=== PATIENT | female | born 1990 | race Caucasian/White ===

== ENCOUNTER 2018-05-02 11:26 | Observation (INO) | payer BC ==
[2018-05-02 14:21] LABS: Urine Blood NEGATIVE (NEG); Urine Glucose 2+ (NEG); Urine Protein NEGATIVE (NEG); Urine Specific Gravity 1.025 (1.005-1.030); Urine pH 5.5 (5.0-7.0)
[2018-05-02] MEDS ORDERED: MORPHINE 4 MG/ML SYR ONE (14:37)
[2018-05-02] MEDS ORDERED: NA CHLORIDE 0.9% 1,000 ML ONE (14:38)
[2018-05-02] MEDS ORDERED: PIPER/TAZO/NS 3.375gm 3.375 GM/100 ML BAG ONE (14:38)
[2018-05-02] MEDS ORDERED: ONDANSETRON 4 MG/2 ML VIAL ONE ×2 (14:38→16:06)
--- NOTE | 2018-05-02 15:11 | RAD REPORT ---
EXAM DESCRIPTION: CT - Abdomen Pelvis W Contrast - 05/02/2018 3:02 pm CLINICAL HISTORY: Abdominal pain, pelvic pain, dyspareunia COMPARISON: CT study April 22 TECHNIQUE: Biphasic, helical CT imaging of the abdomen and pelvis was performed following 100 ml non -ionic IV contrast. No oral contrast administered. All CT scans are performed using dose optimization technique as appropriate and may include automated exposure control or mA/KV adjustment according to patient size. FINDINGS: No suspicious findings in the lung bases. The liver, spleen, and pancreas show no suspicious findings. Gallbladder and biliary tree are also wi thout suspicious finding. Symmetric renal function is seen with no hydronephrosis or suspicious renal mass. No pyelonephritis o r acute renal parenchymal process. No urinary bladder abnormality. Uterus and right ovary show no suspicious findings. There is no fallopian tube dilatation. Left ovary contains a 3.6 centimeter cyst. This is similar to very fractionally enlarged from the April 22 study. No evidence for cyst rupture or hemorrhage. No dilated bowel loops or bowel wall thickening. Appendectomy clips are present. There is a moderatel y large amount of stool filling but not dilating colon. No free air, free fluid or inflammatory stran ding. No hernia, mass or bulky lymphadenopathy. No adrenal abnormality. No suspicious bony findings. IMPRESSION: No obstruction, free air or emergent findings seen. Patient has a 3.6 centimeter left ovarian cyst that may have fractionally enlarged since April 22. No evidence for cyst rupture or hemorrhage. Moderately large stool volume filling but not dilating the colon.
[2018-05-02 15:17] LABS: Absolute Lymphocytes (CBC) 2.3 K/uL (0.7-4.9); Absolute Monocytes 0.4 K/uL (0.1-1.3); Absolute Neutrophil 6.2 K/uL (1.8-8.0); Basophils % 0.7 % (0-1.3); Eosinophils % 0.6 % (0-4.4); Hematocrit 42.5 % (36.0-45.0); Lymphocytes % 25.1 % (15.3-44.8); MCH 30.1 pg (27.0-35.0); MCV 89.3 fL (80-100); MPV 9.3 fL (7.6-11.3); Monocytes % 4.9 % (3.3-12.3); RBC Red Blood Cell Count 4.76 M/uL (3.86-4.86)
[2018-05-02 15:30] LABS: BUN Blood Urea Nitrogen 15 mg/dL (6-20); Bicarbonate 21 mEq/L (21-31); Glucose Level 317 mg/dL (65-120); Potassium 3.6 mEq/L (3.6-5.0); Sodium Level 133 mEq/L (135-145)
[2018-05-02] MEDS ORDERED: MEPERIDINE HCL 25 MG/0.5 ML ONE ×2 (16:06→18:07)
--- NOTE | 2018-05-02 16:55 | ER ---
Nurse's Notes [facility] Name: Huong Benavidez Age: 27 yrs Sex: Female : 1990 Arrival Date: 05/02/2018 Time: 11:37 Bed 16 Private MD: Chu Ryan T Diagnosis: Abdominal and pelvic pain;Intractable pain Presentation: 05/02 11:57 Presenting complaint: Patient states: Lower abdominal and pelvic pain x 2 weeks, worse hb after intercourse 3 days ago. Recently seen by OBGYN for same s/s, told she has ovarian cysts. Denies bleeding/fever. On Flagyl and Cipro Day 12 for pelvic infection. Transition of care: patient was not received from another setting of care. Onset of symptoms is unknown. Risk Assessment: Do you want to hurt yourself or someone else? Patient reports no desire to harm self or others. Initial Sepsis Screen: Does the patient meet any 2 criteria? No. Patient's initial sepsis screen is negative. Does the patient have a suspected source of infection? No. Patient's initial sepsis screen is negative. Care prior to arrival: Medication(s) given: Excedrin at 0830 today. 11:57 Method Of Arrival: Ambulatory hb 11:57 Acuity: STACI 3 hb Historical: - Allergies: 12:00 No Known Drug Allergies; hb - PMHx: 12:00 Ovarian Cysts; hb - PSHx: 12:00 Appendectomy; Tonsillectomy; ; hb - Immunization history:: Adult Immunizations up to date. - Social history:: Smoking status: Patient/guardian denies using tobacco. - Ebola Screening: : No symptoms or risks identified at this time. Screenin:15 Abuse screen: Denies threats or abuse. Denies injuries from another. Nutritional ph screening: No deficits noted. Tuberculosis screening: No symptoms or risk factors identified. Fall Risk None identified. Assessment: 14:15 General: Appears in no apparent distress. comfortable, well groomed, Behavior is calm, ph cooperative, appropriate for age, Denies fever, feeling ill. Pain: Complains of pain in suprapubic area, right lower quadrant and left lower quadrant. Neuro: Level of Consciousness is awake, alert, obeys commands, Oriented to person, place, time, situation. Cardiovascular: Capillary refill < 3 seconds Patient's skin is warm and dry. Respiratory: Airway is patent Respiratory effort is even, unlabored, Respiratory pattern is regular, symmetrical. GI: Abdomen is round non-distended, Bowel sounds present X 4 quads. Abd is soft X 4 quads Abdomen is tender to palpation in right lower quadrant and left lower quadrant Reports bloating, nausea, Patient currently denies diarrhea, vomiting. : Reports pain in suprapubic area Denies discharge, vaginal bleeding. Derm: Skin is intact, is healthy with good turgor, Skin is pink, warm \T\ dry. Musculoskeletal: Circulation, motion, and sensation intact. Range of motion: intact in all extremities. 15:29 Reassessment: Patient appears in no apparent distress at this time. Patient and/or ph family updated on plan of care and expected duration. Pain level reassessed. Patient is alert, oriented x 3, equal unlabored respirations, skin warm/dry/pink. Pt resting quietly, awaiting CT and lab results. 16:45 Reassessment: Patient appears in no apparent distress at this time. Patient and/or ph family updated on plan of care and expected duration. Pain level reassessed. Patient is alert, oriented x 3, equal unlabored respirations, skin warm/dry/pink. Pt resting quietly, reports that pain has decreased to 4/10. 17:19 Reassessment: Patient appears in no apparent distress at this time. Patient and/or ph family updated on plan of care and expected duration. Pain level reassessed. Patient is alert, oriented x 3, equal unlabored respirations, skin warm/dry/pink. Pt reports pain 5/10, denies nausea, awaiting room assignment. Vital Signs: 11:56 BP 124 / 95; Pulse 91; Resp 16; Temp 98; Pulse Ox 100% on R/A; Pain 6/10; hb 14:30 BP 124 / 90; Pulse 89; Resp 16; Pulse Ox 99% on R/A; ph 15:53 BP 126 / 87; Pulse 89; Resp 16; Pulse Ox 99% on R/A; ph 18:09 BP 116 / 78; Pulse 89; Resp 18; Temp 97.8; Pulse Ox 97% on R/A; ph ED Course: 11:37 Patient arrived in ED. kk3 11:38 Chu Ryan MD is Private Physician. kk3 11:59 Triage completed. hb 12:00 Arm band placed on right wrist. hb 14:09 Jessica Cano RN is Primary Nurse. ph 14:14 Nestor Salinas MD is Attending Physician. kdr 14:18 Urine collected: clean catch specimen, clear, coty colored. jb1 14:39 Inserted saline lock: 20 gauge in left Blood collected. ph 15:02 CT Abd/Pelvis - W/Contrast In Process Unspecified. EDMS 15:16 Patient has correct armband on for positive identification. Placed in gown. Bed in low ph position. Call light in reach. Side rails up X 1. Pulse ox on. NIBP on. Warm blanket given. 16:54 Conchita Sim MD is Hospitalizing Provider. kdr 18:19 No provider procedures requiring assistance completed. Patient admitted, IV remains in ph place. Administered Medications: 14:10 Drug: Zosyn 3.375 grams Route: IVPB; Infused Over: 60 mins; Site: left antecubital; ph 15:00 Follow up: Response: No adverse reaction; IV Status: Completed infusion ph 14:45 Drug: NS 0.9% 1000 ml Route: IV; Rate: 1 bolus; Site: left antecubital; ph 16:00 Follow up: Response: No adverse reaction; IV Status: Completed infusion ph 14:45 Drug: morphine 4 mg Route: IVP; Site: left antecubital; ph 15:45 Follow up: Response: No adverse reaction; Pain is unchanged, physician notified ph 14:45 Drug: Zofran 4 mg Route: IVP; Site: left antecubital; ph 15:45 Follow up: Response: No adverse reaction ph 16:16 Drug: Demerol 25 mg Route: IVP; Site: left antecubital; ph 17:00 Follow up: Response: No adverse reaction; Pain is decreased ph 16:17 Drug: Zofran 4 mg Route: IVP; Site: left antecubital; ph 17:00 Follow up: Response: No adverse reaction ph 18:09 Drug: Demerol 25 mg Route: IVP; Site: left antecubital; ph 18:15 Follow up: Response: No adverse reaction; Pain is decreased ph Outcome: 16:55 Decision to Hospitalize by Provider. kdr 18:20 Admitted to Med/surg accompanied by tech, via wheelchair, room 209, Other JULIOCESAR Dickens ph 18:20 Condition: stable 18:20 Instructed on the need for admit. 18:21 Patient left the ED. ph Signatures: Dispatcher [employer] CAMI KitchenNate ruiz [email or web address] Nestor Salinas MD MD [facility] Jessica Cano RN RN Taryn Cruz RN RN [facility], [place] kk3 Corrections: (The following items were deleted from the chart) 12:01 11:57 Presenting complaint: Patient states: Lower abdominal and pelvic pain x 2 weeks, hb worse after intercourse 3 days ago. Recently seen by OBGYN for same s/s, told she has ovarian cysts. Denies bleeding/fever hb
[2018-05-02] MEDS ORDERED: ONDANSETRON 4 MG/2 ML VIAL IV PRN (16:56)
[2018-05-02] MEDS ORDERED: ACETAMINOPHEN 500 MG TAB PO PRN (16:56)
--- NOTE | 2018-05-02 16:56 | EDPHYS ---
Physician Documentation [facility] Name: Huong Benavidez Age: 27 yrs Sex: Female : 1990 Arrival Date: 05/02/2018 Time: 11:37 Bed 16 Private MD: Chu Ryan T ED Physician Nestor Salinas HPI: 05/02 21:47 This 27 yrs old Female presents to ER via Ambulatory with complaints of kdr Abdominal Pain, Pelvic Pain. 21:47 The patient presents with abdominal pain in the lower abdomen, in the left lower kdr quadrant. Onset: The symptoms/episode began/occurred The patient has been having abdominal pain for weeks and now has worsening pain to the lower abdomen and LLQ.. The symptoms radiate to the left flank. Associated signs and symptoms: Pertinent positives: nausea, Pertinent negatives: chest pain, constipation, diarrhea, dysuria, fever, headache, hematuria, palpitations, shortness of breath, vaginal discharge, vomiting, vomiting blood. The symptoms are described as achy, crampy, dull, waxing/waning. Modifying factors: The symptoms are alleviated by nothing, the symptoms are aggravated by breathing deeply, movement, pressure, touching the area, walking. Severity of pain: At its worst the pain was moderate in the emergency department the pain is unchanged. The patient has experienced similar episodes in the past, multiple times, The patient has been having abdominal pain off and on for some weeks. She has recently been evaluated by Dr. Handley and Dr. Recinos. No clear etiology has been found to date. The patient has been recently seen by a physician:. Historical: - Allergies: 12:00 No Known Drug Allergies; hb - PMHx: 12:00 Ovarian Cysts; hb - PSHx: 12:00 Appendectomy; Tonsillectomy; ; hb - Immunization history:: Adult Immunizations up to date. - Social history:: Smoking status: Patient/guardian denies using tobacco. - Ebola Screening: : No symptoms or risks identified at this time. ROS: 21:47 Constitutional: Negative for fever, chills, and weight loss, Eyes: Negative for injury, kdr pain, redness, and discharge, ENT: Negative for injury, pain, and discharge, Neck: Negative for injury, pain, and swelling, Cardiovascular: Negative for chest pain, palpitations, and edema, Respiratory: Negative for shortness of breath, cough, wheezing, and pleuritic chest pain, Back: Negative for injury and pain, : Negative for injury, bleeding, discharge, and swelling, MS/Extremity: Negative for injury and deformity, Skin: Negative for injury, rash, and discoloration, Neuro: Negative for headache, weakness, numbness, tingling, and seizure activity. Psych: Negative for depression, anxiety, suicide ideation, homicidal ideation, and hallucinations, Allergy/Immunology: Negative for hives, rash, and allergies, Endocrine: Negative for neck swelling, polydipsia, polyuria, polyphagia, and marked weight changes, Hematologic/Lymphatic: Negative for swollen nodes, abnormal bleeding, and unusual bruising. 21:47 Abdomen/GI: Positive for abdominal pain, nausea, Negative for diarrhea, constipation, abdominal cramps, abdominal distension, anorexia, dysphagia, black/tarry stool, rectal pain, rectal bleeding. Exam: 21:47 Constitutional: This is a well developed, well nourished patient who is awake, alert, kdr and in no acute distress. Head/Face: Normocephalic, atraumatic. Eyes: Pupils equal round and reactive to light, extra-ocular motions intact. Lids and lashes normal. Conjunctiva and sclera are non-icteric and not injected. Cornea within normal limits. Periorbital areas with no swelling, redness, or edema. Neck: Trachea midline, no thyromegaly or masses palpated, and no cervical lymphadenopathy. Supple, full range of motion without nuchal rigidity, or vertebral point tenderness. No Meningismus. Chest/axilla: Normal chest wall appearance and motion. Nontender with no deformity. No lesions are appreciated. Cardiovascular: Regular rate and rhythm with a normal S1 and S2. No gallops, murmurs, or rubs. Normal PMI, no JVD. No pulse deficits. Respiratory: Lungs have equal breath sounds bilaterally, clear to auscultation and percussion. No rales, rhonchi or wheezes noted. No increased work of breathing, no retractions or nasal flaring. Back: No spinal tenderness. No costovertebral tenderness. Full range of motion. Skin: Warm, dry with normal turgor. Normal color with no rashes, no lesions, and no evidence of cellulitis. MS/ Extremity: Pulses equal, no cyanosis. Neurovascular intact. Full, normal range of motion. Neuro: Awake and alert, GCS 15, oriented to person, place, time, and situation. Cranial nerves II-XII grossly intact. Motor strength 5/5 in all extremities. Sensory grossly intact. Cerebellar exam normal. Normal gait. Psych: Awake, alert, with orientation to person, place and time. Behavior, mood, and affect are within normal limits. 21:47 Abdomen/GI: Inspection: abdomen appears normal, Bowel sounds: active, all quadrants, diminished, Palpation: soft, mild abdominal tenderness, in the suprapubic area, posterior aspect of left lateral abdomen, anterior aspect of left lateral abdomen and left lower quadrant, mass, is not appreciated, rebound tenderness, is not appreciated. Vital Signs: 11:56 BP 124 / 95; Pulse 91; Resp 16; Temp 98; Pulse Ox 100% on R/A; Pain 6/10; hb 14:30 BP 124 / 90; Pulse 89; Resp 16; Pulse Ox 99% on R/A; ph 15:53 BP 126 / 87; Pulse 89; Resp 16; Pulse Ox 99% on R/A; ph 18:09 BP 116 / 78; Pulse 89; Resp 18; Temp 97.8; Pulse Ox 97% on R/A; ph MDM: 16:55 Patient medically screened. kdr 21:47 Data reviewed: vital signs, nurses notes, lab test result(s), radiologic studies. kdr Counseling: I had a detailed discussion with the patient and/or guardian regarding: the historical points, exam findings, and any diagnostic results supporting the discharge/admit diagnosis, lab results, radiology results, the need for further work-up and treatment in the hospital. Physician consultation: Conchita Sim MD regarding admission, and will see patient in inpatient room, shortly. Physician consultation: Peter Recinos MD regarding patient's condition. Admission orders: after a detailed discussion of the patient's condition and case, the admit orders are written by me. 05/02 14:19 Order name: Urine Dipstick--Ancillary (enter results); Complete Time: 14:23 ag 05/02 14:19 Order name: Urine --Ancillary (enter results); Complete Time: 14:23 ag 05/02 14:25 Order name: CBC with Diff; Complete Time: 15:38 kdr 05/02 14:25 Order name: Chem 7; Complete Time: 15:38 kdr 05/02 14:25 Order name: CT Abd/Pelvis - W/Contrast; Complete Time: 15:38 kdr Administered Medications: 14:10 Drug: Zosyn 3.375 grams Route: IVPB; Infused Over: 60 mins; Site: left antecubital; ph 15:00 Follow up: Response: No adverse reaction; IV Status: Completed infusion ph 14:45 Drug: NS 0.9% 1000 ml Route: IV; Rate: 1 bolus; Site: left antecubital; ph 16:00 Follow up: Response: No adverse reaction; IV Status: Completed infusion ph 14:45 Drug: morphine 4 mg Route: IVP; Site: left antecubital; ph 15:45 Follow up: Response: No adverse reaction; Pain is unchanged, physician notified ph 14:45 Drug: Zofran 4 mg Route: IVP; Site: left antecubital; ph 15:45 Follow up: Response: No adverse reaction ph 16:16 Drug: Demerol 25 mg Route: IVP; Site: left antecubital; ph 17:00 Follow up: Response: No adverse reaction; Pain is decreased ph 16:17 Drug: Zofran 4 mg Route: IVP; Site: left antecubital; ph 17:00 Follow up: Response: No adverse reaction ph 18:09 Drug: Demerol 25 mg Route: IVP; Site: left antecubital; ph 18:15 Follow up: Response: No adverse reaction; Pain is decreased ph Disposition: 05/02/18 16:55 Hospitalization ordered by Conchita Sim for Observation. Preliminary diagnosis are Abdominal and pelvic pain, Intractable pain. - Bed requested for Telemetry/MedSurg (observation). - Status is Observation. ph - Condition is Fair. - Problem is an ongoing problem. - Symptoms have improved. UTI on Admission? No Signatures: Dispatcher [employer] Claire Armstrong RN RN dw Rittger, Kevin, MD MD kdr Hall, Patricia, RN RN Taryn Cruz RN RN Corrections: (The following items were deleted from the chart) 17:52 16:55 Hospitalization Ordered by Conchita Sim MD for Observation. Preliminary dw diagnosis is Abdominal and pelvic pain; Intractable pain. Bed requested for Telemetry/MedSurg (observation). Status is Observation. Condition is Fair. Problem is an ongoing problem. Symptoms have improved. UTI on Admission? No. kdr 18:21 17:52 05/02/2018 16:55 Hospitalization Ordered by Conchita Sim MD for Observation. ph Preliminary diagnosis is Abdominal and pelvic pain; Intractable pain. Bed requested for Telemetry/MedSurg (observation). Status is Observation. Condition is Fair. Problem is an ongoing problem. Symptoms have improved. UTI on Admission? No. dw
[2018-05-02] MEDS: D5 0.45 NS 1,000 ML IV SCH (18:42)
[2018-05-02] MEDS: METRONIDAZOLE 500mg IVPB 500 MG/100 ML BAG IV SCH ×2 (18:42→23:51)
[2018-05-02] MEDS: MORPHINE 4 MG/ML SYR IV PRN (20:45)
[2018-05-02] MEDS: AMPICILLIN/SULBACT 3 GM in NA CHLORIDE 0.9% 100 ML IVPB SCH ×2 (20:46→23:51)
[2018-05-03] MEDS: D5 0.45 NS 1,000 ML IV SCH ×3 (02:49→18:32)
[2018-05-03] MEDS: MORPHINE 4 MG/ML SYR IV PRN ×2 (04:14→10:14)
[2018-05-03] MEDS: AMPICILLIN/SULBACT 3 GM in NA CHLORIDE 0.9% 100 ML IVPB SCH (05:32)
[2018-05-03 05:50] LABS: Albumin 3.1 g/dL (3.2-5.5); Bilirubin Direct 0.1 mg/dL (0-0.2); Bilirubin Total 0.5 mg/dL (0.3-1.2); Potassium 4.1 mEq/L (3.6-5.0); Protein, Total 5.8 g/dL (6.0-8.3)
[2018-05-03 05:51] LABS: Absolute Lymphocytes (CBC) 1.9 K/uL (0.7-4.9); Absolute Monocytes 0.5 K/uL (0.1-1.3); Absolute Neutrophil 3.7 K/uL (1.8-8.0); Basophils % 0.7 % (0-1.3); Eosinophils % 1.4 % (0-4.4); Hematocrit 37.7 % (36.0-45.0); Lymphocytes % 31.1 % (15.3-44.8); MCH 30.8 pg (27.0-35.0); MCV 89.3 fL (80-100); MPV 8.8 fL (7.6-11.3); Monocytes % 7.5 % (3.3-12.3); RBC Red Blood Cell Count 4.22 M/uL (3.86-4.86)
[2018-05-03] MEDS: METRONIDAZOLE 500mg IVPB 500 MG/100 ML BAG IV SCH ×2 (06:22→07:32)
[2018-05-03] MEDS ORDERED: PROPOFOL 200 MG/20 ML VIAL IV ONE (06:58)
[2018-05-03] MEDS ORDERED: LIDOCAINE 2% MPF 5 ML VIAL ONE (06:59)
[2018-05-03] MEDS ORDERED: ROCURONIUM 50 MG/5 ML VIAL IV ONE (06:59)
[2018-05-03] MEDS ORDERED: NA CHLORIDE 0.9% 1,000 ML ONE ×2 (06:59→08:46)
[2018-05-03] MEDS ORDERED: MIDAZOLAM HCL 2 MG/2 ML INJ ONE (07:00)
[2018-05-03] MEDS ORDERED: FENTANYL CITR 250 MCG/5 ML ONE (07:00)
[2018-05-03] MEDS ORDERED: ONDANSETRON HCL 40 MG/20 ML VIAL ONE (07:01)
[2018-05-03] MEDS ORDERED: GLYCOPYRROLATE 0.2 MG/ML SYR ONE (07:57)
[2018-05-03] MEDS ORDERED: NEOSTIGMINE 1 MG/ML -5 ML SYRINGE ONE (08:37)
[2018-05-03] MEDS: MEPERIDINE HCL 25 MG/0.5 ML ONE ×2 (08:50→08:57)
[2018-05-03] MEDS ORDERED: MORPHINE 4 MG/ML SYR ONE (09:14)
[2018-05-03] MEDS ORDERED: HYDROCODONE/APAP 5/325 MG TAB PO PRN (10:19)
[2018-05-03] MEDS ORDERED: IBUPROFEN 200 MG TAB PO PRN (10:19)
[2018-05-03] MEDS ORDERED: PROMETHAZINE 25 MG TABLET PO PRN (10:20)
[2018-05-03] MEDS: HYDROCODONE/APAP 5/325 MG TAB PO PRN ×2 (11:24→18:33)
[2018-05-03] MEDS: PROMETHAZINE 25 MG/ML VIAL IV PRN ×2 (11:33→20:04)
--- NOTE | 2018-05-03 13:21 | OP ---
Date of Procedure: 05/03/2018 Surgeon: Conchita Sim MD Preoperative Diagnosis: Pelvic pain. Postoperative Diagnoses: 1.Pelvic pain and an umbilical hernia. 2.Left ovarian cyst. Procedures Performed: Diagnostic laparoscopy, left ovarian cyst drainage, right lateral wall periton eal biopsy by myself. Please look at Dr. Recinos's note for diagnostic laparoscopy and umbilical hernia repair. Specimens: Right lateral wall biopsy. Complications: None. Drains: None. Condition: The patient is stable. Estimated Blood Loss: Minimal. Indications: The patient is a 27-year-old with history of pelvic pain. Initially, she was seen by Faizan Ryan, treated for PID x2. She has had an IUD for 2 years. She had a delivery 2 years ag o after which the IUD was placed for control. She did well until she went to [facility] [place], when her pain got worse. She was treated with 2 rounds of antibiotics, pretty strong dose and 2 -week duration each time. She improved in between each and then recurred with pain, so she was refer red to me. She came back 5 weeks after her initial exam and she still had her complaints of pain. A transvagina l ultrasound showed a left ovarian cyst, but nothing really remarkable, so at this point since there was no other etiology available, her GC was negative, I had removed her IUD to see if that would reso lve her pain. She had right adnexal tenderness at the time. After removing the IUD, patient came ba ck a few days later with severely increased abdominal pain with cervical motion tenderness and adnexa l tenderness. So, I started her on oral antibiotics Levaquin and Flagyl, and if this did not get bet ter in 72 hours, she was to be re-evaluated, so she came back again since her pain had not gotten bet ter. However, at this point, her pain was not very consistent with just plain PID. Her risk factors were also very minimal. She has been monogamous 3 years with the same partner with gonorrhea, chlam ydia testing negative. No fever or chills or abnormal discharge. So at this point, I referred her t o Dr. Recinos, and he evaluated the patient. CT scan was done. No evidence of any abnormal patholo gy. So we decided that if the pain did not resolve, that we would do a diagnostic laparoscopy. Now, patient was observed. Her pain apparently got better on last week and within a day or so h er pain had come back, and it was severe. She saw me in the office yesterday. Then, after examinati on, she had brought herself to the ER because she could not wait until we did an outpatient elective laparoscopy. So, once the patient was in the hospital, she was kept with IV antibiotics just as a co ntinuation of her oral antibiotics for PID that were started less than 2 weeks ago. Her white cell count was 9 without a shift. Everything else normal on her labs. On examination, her tenderness was at bilateral lower quadrant, minimal cervical motion tenderness, and bilateral adnexa l tenderness. Her complaints of pain are disproportionate to the findings of tenderness on exam. So she was consented for diagnostic laparoscopy, possible endometriosis excision if it was found, and removal or drainage of left ovarian cyst as needed. The patient was asking about removal of ovaries. However, she is only 27 years old, and I discussed with her and her that this is not unacceptable practice. If the pathology is benign and anyt albino short of cancer then she should not get oophorectomy. Dr. Recinos's was present for the case look at his dictation for the rest of the note. Description Of Procedure: Lower abdomen, vulva, vagina, and perineum were prepped and draped in a st erile fashion. The patient was placed in a supine fashion with arms tucked by the side in lithotomy but using Dave stirrups. After the vulva, vagina, and perineum were prepped and draped as well, the speculum was used to expose the cervix and it was held with an Allis clamp. A diagnostic VCare was introduced and fixed in place. All instruments were removed after the Lyons was placed. It was nedra ched to a drainage bag. A midline incision was made infraumbilically. Dr. Recinos opened the patient up, then after his maryellen vey was done, then I did a pelvic survey. Uterus anteriorly had the scar from her prior . No evidence of any endometriosis on the bladder. Anterior cul-de-sac, posterior cul-de-sac, left lateral broad ligament, both ovaries, tubes without a ny endometriosis. On the right lateral wall, there was a fleshy lesion, which appeared to be just pe ritoneal, so this was picked up and cut with laparoscopic scissors for biopsy. I went on to look at the left ovarian cyst, and this was opened with a monopolar needle and a cystoto my was performed. The edges were cauterized. This appeared to be a corpus luteal cyst. There was n o evidence of any endometriosis in this even after looking inside the cyst wall, even at the base of it. So the entire pelvic cavity was thoroughly irrigated and suctioned. There was a small amount of blee ding from the peritoneal biopsy site. This was packed with a Ray-Nahid, which was introduced through t he umbilical port, then removed under direct vision. Thorough irrigation and suction were performed. There was excellent hemostasis. All the trocars were removed under direct vision. There were plac ed at the umbilicus. The fascia was closed with the help of 0 Vicryl in a [id number] fashion x2 to close the hernia defect that was opened up. VCare was removed. The Lyons was removed and the patient was recovered from anesthesia. Instrument, needle, and sponge counts were correct at the end of the case. The patient tolerated the procedure well. She will follow up with me in 1 week. She will be discharged to the floor, and she can be discharged home later today, and she can stop her antibiotics. Her tube s looked completely uninflamed. ОЛЬГА/DEAN Voice ID: [id number] Report ID: [id number]
[2018-05-03] MEDS ORDERED: KETOROLAC 30 MG/ML INJ IV ONE (16:00)
[2018-05-04] MEDS: D5 0.45 NS 1,000 ML IV SCH ×3 (01:00→08:01)
[2018-05-04] MEDS ORDERED: GLIMEPIRIDE 2 MG TABLET PO SCH (08:00)
[2018-05-04] MEDS: HYDROCODONE/APAP 5/325 MG TAB PO PRN (08:01)
--- NOTE | 2018-07-04 22:26 | OP ---
Date of Procedure: 05/03/2018 Surgeon: Peter Recinos MD Diagnoses: Pelvic pain, umbilical hernia. Postoperative Diagnosis: Pelvic pain, umbilical hernia, left ovarian cyst. Procedure: By Dr. Recinos is diagnosis laparoscopy, umbilical hernia repair and by Dr. Sim is diagnostic laparoscopy, left ovarian cyst drainage, right lateral wall peritoneal biopsy. Surgeons: Dr. Sim for gynecological part and Dr. Recinos for the general Surgical part. Complications: None. Findings: The patient has an umbilical hernia present with incarcerated omentum. Indications: This is a case of a 27-year-old patient initially seen by Dr. Sim for pelvic pain, extensive workup. The etiology of that is unknown and is unable to know by imaging or by blood work the etiology of this pain. So, Dr. Sim decided to take her to the OR for diagnostic lap and als o asked me to take a look at the patient and examine the patient from the General Surgery standpoint to make sure there is no etiology of pain that we can see on the diagnostic lap, at the same time try ing to repair umbilical hernia the patient has present. The benefits, alternatives, and risks explai soumya to the patient, which include but are not limited to infection, bleeding, damage to adjacent stru ctures, anesthesia complication, negative laparoscopy, recurrence of the hernia, AL, even , this may not relieve any symptoms and she might need more than one surgical intervention. She understood , signed a consent. Description Of Procedure: The patient was brought to the operating room and placed in the supine pos ition. Anesthesia was done without complication. The patient initially was seen by Dr. Sim jus stephanie through her preoperative gynecological setup. Then after that, we prepped and draped the abdomen i n usual sterile fashion. Local anesthesia was applied followed by sharp incision of the skin. Incis ion was carried down to fascia, which was visualized. The patient has umbilical hernia with incarcer ated omentum. The umbilical skin was from the umbilical sac. Then after that, we opened t he umbilical skin fat, we noticed incarcerated omentum that was after releasing some adhesions from t he hernia sac was carefully reduced in abdominal cavity after I fully inspected to make sure there wa s no bleeding. The hernia sac was opened. The fascia edges were cleaned. Hernia edges clearly iden tified and then we proceeded to close #1 Vicryl in [id number] to close the defects. There is a stitch that was left at the end so we can close at the end of the case, and finalize this procedure s justine we extended incision to allow the trocars to come in. At that moment, I proceeded the put the t rocars inside with a 5 mm trocar too. This allowed for the diagnostic lap from the General Surgery s [facility]. Small bowel and large bowel shows no extraluminal masses. We did not see any inguinal he rnias. In the upper abdomen stomach compressible, liver with no extraluminal masses seen. Peritoneu m, no obvious masses seen. The area of the pelvis was deferred to Dr. Sim's dictation for evalu ation of that area. That moment, Dr. Sim continued with her procedures. The umbilical hernia w as open and we left one of the stitch that she will close at the end to close her incisions since she still had the camera in. The patient tolerated the procedure well with no bleeding. The hernia sac was sent for specimen. The patient will be seen in the office in a week after she gets discharged. PASTOR/DEAN Voice ID: [id number] Report ID: [id number]
== END 2018-05-04 10:09 | disposition home or self-care (01) ==
LOC: ER 11:26 → ERHOLD 16:55 → 2ND 18:17
PROVIDERS: ADMIT Obstetrics & Gynecology; ATTEND Obstetrics & Gynecology
PROC: 0WBF4ZX Excision of Abdominal Wall, Percutaneous Endoscopic Approach, Diagnostic (ICD-10-PCS; 2018-05-03)
PROC: 0WQF0ZZ Repair Abdominal Wall, Open Approach (ICD-10-PCS; 2018-05-03)
PROC: 0U914ZX Drainage of Left Ovary, Percutaneous Endoscopic Approach, Diagnostic (ICD-10-PCS; principal; 2018-05-03 07:00)
DX: N83.202 Unspecified ovarian cyst, left side (principal); K42.9 Umbilical hernia without obstruction or gangrene; N73.9 Female pelvic inflammatory disease, unspecified; N94.89 Other specified conditions associated with female genital organs and menstrual cycle
CPT/HCPCS: 36415; 74177; 80048; 80076; 81003; 81025; 82962; 83690; 85025; 88305; 96361; 96365; 96375; 99285; G0378; J0295; J2175; J2250; J2405; J2543; J2550; J2710; J7030; Q9967

== ENCOUNTER 2022-02-28 13:54 | Emergency (ER) | payer BC, SELFPAY ==
--- OUTSIDE RECORDS SUMMARY | 2022-02-28 13:56 | XMS REPORT | Continuity of Care Document ---
:1990 Author Organization [facility] t Address [address] [place] [address] Care Team Providers Name Role Phone REGINA STRINGER Primary Care Physician Unavailable Markie HARLEY Attending Clinician Unknown Attending Clinician Unavailable MARKIE Attending Clinician Unavailable Miguel A GARLAND Attending Clinician Payers Payer Name Policy Type Policy Number Effective Date Expiration Date S [facility] [id number] 2018 00:00:00 Advance Directives Directive Decision Effective Termination Comments Source Date Date Healthcare Agents on N/A [facility] ersity FileNameRelationshipHealthcare [facility] Agent Medical RelationshipCommunicationMarcus Branch [facility] hospitalSpouseHealth Care [phone] (Mobile) Problems Condition Condition Condition Status Onset Resolution Last Treating Co mments Source Name Details Category Date Date Treatment Clinician Date Hypertrigl Hypertrigl Disease Active U nivers yceridemia yceridemia 7-29 it y of 00:00: [place] 00 Medical Branch Microalbum Microalbum Disease Active U nivers inuria inuria 7-29 ity of 00:00: [place] 00 Medical Branch Obesity Obesity Disease Active Univers (BMI (BMI 5-27 ity of 30-39.9) 30-39.9) 00:00: [place] 00 Medical Branch Type 2 Type 2 Disease Active Univers diabetes diabetes 3-06 ity of mellitus mellitus 00:00: [place] without without 00 Medical complicati complicati Br anch on on Need for Need for Disease Active Unive rs varicella varicella 2-28 ity of vaccine vaccine 00:00: [place] [facility] Overweight Overweight Disease Active U nivers 2-28 ity of 00:00: [place] [facility] History of History of Disease Active U nivers depression depression 1-30 it y of 00:00: [place] [facility] Allergies, Adverse Reactions, Alerts Allergy Allergy Status Severity Reaction(s) Onset Inactive Treating Comm ents Source Name Type Date Date Clinician NO KNOWN Drug Active Univers ALLERGIE Class ity of S [facility] Social History Social Habit Start Date Stop Date Quantity Comments Source Exposure to Not sure [facility] SARS-CoV-2 (event) [facility] History SDOH University o f Alcohol Frequency [facility] edical Branch History SDOH University o f Alcohol Std Drinks [facility] History SDOH University o f Alcohol Binge [facility] [place] Alcohol intake 2022-02-20 2022-02-20 0 /d University of 00:00:00 00:00:00 [facility] Alcohol Comment 2017-01-12 2017-01-12 occasionally Univers ity of 00:00:00 00:00:00 [facility] Tobacco use and 2015-05-20 2015-05-20 Never used Universit y of exposure 00:00:00 00:00:00 [facility] Sex [birth year] Universit y of 00:00:00 00:00:00 [facility] Smoking Status Start Date Stop Date Source Never smoker [facility] Medications Ordered Filled Start Stop Current Ordering Indication Dosage Frequency Signature Comments Components Source Medication Medication Date Date Medication? Clinician (SIG) Name Name semaglutide Yes inject Univ ers (OZEMPIC 02-20 under the ity of [place]) 12:32: skin. [place] [facility] Nitrofurant 2021- Yes [id number] 100mg Take 1 Univers oin&Nit. 02-20 capsule by ity of [place] 00:00: 04:59 mouth 2 [place] as (MACROBID) 00 :00 (two) Medical 100 mg times Branch capsule daily with meals for 5 days. fluconazole 2021- Yes [id number] 150mg Take 1 Univers 150 mg 4-01 04-02 tablet by ity of tablet 00:00: 04:59 [place] 00 :[place] now for 1 Medical dose. Branch METFORMIN 0 Yes [id number] TAKE ONE Univers ER 500 mg 1-30 TABLET BY ity o f 24 hr 00:00: MOUTH [place] tablet 00 TWICE A Medical DAY WITH Branch MEALS METFORMIN 2021-0 Yes [id number] TAKE ONE Univers ER 500 mg 1-30 TABLET BY ity o f 24 hr 00:00: MOUTH [place] tablet 00 TWICE A Medical DAY WITH Branch MEALS metformin 2020-0 2021- No [id number] 500mg Take 1 Univers ER 500 mg 6-29 -30 tablet by ity of 24 hr 00:00: 00:00 mouth 2 [place] tablet 00 :00 (two) Medical times Branch daily with meals. Blood-Gluco Yes [id number] Use as Univers se Meter 2-22 directed ity of (FREESTYLE 00:00: [place] LITE METER) 00 Medical Kit Branch lancets Yes [id number] Use as Uni vers (FREESTYLE 2-22 directed ity o f LANCETS) 28 00:00: [place] [facility] 00 Medical Branch Blood-Gluco Yes [id number] Use as Univers se Meter 2-22 directed ity of (FREESTYLE 00:00: [place] LITE METER) 00 Medical Kit Branch lancets Yes [id number] Use as Uni vers (FREESTYLE 2-22 directed ity o f LANCETS) 28 00:00: [address] Immunizations Ordered Filled Immunization Date Status Comments [facility] e Immunization Name Name SARS-COV-2 COVID-19 2021-03-07 Completed Unive rsity of MODERNA VACCINE 00:00:00 [facility] SARS-COV-2 COVID-19 2021-03-07 Completed Unive rsity of MODERNA VACCINE 00:00:00 [facility] SARS-COV-2 COVID-19 2021-02-07 Completed Unive rsity of MODERNA VACCINE 00:00:00 [facility] SARS-COV-2 COVID-19 2021-02-07 Completed Unive rsity of MODERNA VACCINE 00:00:00 [facility] Varicella 2016-02-17 Completed University of (varivax)(chicken 00:00:00 [facility] edical pox) Branch Varicella 2016-02-17 Completed University of (varivax)(chicken 00:00:00 [facility] edical pox) Branch Varicella 2016-01-15 Completed University of (varivax)(chicken 00:00:00 [facility] edical pox) Branch Varicella 2016-01-15 Completed University of (varivax)(chicken 00:00:00 [facility] edical pox) Branch TDAP 2015-12-05 Completed University of 00:00:00 [facility] TDAP 2015-12-05 Completed University of 00:00:00 [facility] HPV 2011-11-22 Completed University of 00:00:00 [facility] HPV 2011-11-22 Completed University of 00:00:00 [facility] Vital Signs Vital Name Observation Time Observation Value Comments Source Systolic blood 2022-02-20 17:34:00 127 mm[Hg] Univer sity of pressure [facility] Diastolic blood 2022-02-20 17:34:00 84 mm[Hg] Unive rsity [facility] Heart rate 2022-02-20 17:31:00 73 /min [facility] Body temperature 2022-02-20 17:31:00 36.44 [facility]and[facility] Respiratory rate 2022-02-20 17:31:00 18 /min [facility] Body height 2022-02-20 17:31:00 167.6 cm [facility] Body weight 2022-02-20 17:31:00 76.204 kg [facility] BMI 2022-02-20 17:31:00 27.12 kg/m2 [facility] Oxygen saturation in 2022-02-20 17:31:00 98 /min [facility] Arterial blood by [facility] Pulse oximetry Branch Procedures Procedure Date / Time Performed Performing Clinician Sourmadan e POCT URINALYSIS 2022-02-20 17:40:00 Eufemia aBrber o f [facility] Encounters Start End Encounter Admission Attending Care Care Encounter Source Date/Time Date/Time Type Type Clinicians Facility Department ID 2022-02-20 2022-02-20 Urgent [facility] [id number] [facility] 12:40:00 13:00:00 Care Unknown, Attending HEALTH [id number] ity of [facility] [id number] [place] as MARNIE?BLEA [id number] Me dical [address] MEDICAL OFFICE BUILDING 2022-02-20 2022-02-20 Outpatient R MARKIE, [facility] [id number] Univers 12:40:00 12:57:02 PATRICIA crisostomo o f [facility] 2022-02-20 2022-02-[address] [facility] [id number] Univers 12:40:00 12:40:00 [id number] [facility] 2021-12-12 2021-12-12 Refill Miguel [facility] [id number] Univers 00:00:00 00:00:00 Ana RANDOLPH [id number] i ty of [facility] [id number] PROF[place] [id number] [place] dical [address] Results Test Description Test Time Test Comments Results Result Comments Source POCT URINALYSIS W SPECIFIC GRAVITY 2022-02-20 17:40:00 Test Item Value Reference Range Interpretation Comme nts POCT U SP GRAV (test code = 1.005 mg/dl 1.005-1.025 3255) POCT PH U (test code = 3254) 6 mg/dl 5-8 POCT U LEUK EST (test code = trace Negative - Negative 3263) POCT U NIT (test code = 3262) neg Negative - Negative POCT U PROT (test code = 3259) neg Negative - Negative POCT U GLU (test code = 3256) Negative - Negative POCT U KETONE (test code = neg Negative - Negative 3258) POCT U UROBILI (test code = norm 0.2-1 3260) POCT U BILI (test code = 3261) neg Negative - Negative POCT U BLD (test code = 3257) Negative - Negative POCT U COLOR (test code = 3266) light POCT U APPEAR (test code = cloudy 3267) CASSIDY (test code = CASSIDY) accurate development and interpretation of all internal controls Lab Interpretation (test code = Abnormal 24237-7) [facility]
[2022-02-28] MEDS ORDERED: ONDANSETRON 4 MG/2 ML VIAL ONE (14:32)
[2022-02-28] MEDS ORDERED: NA CHLORIDE 0.9% 1,000 ML ONE ×2 (14:32→16:30)
[2022-02-28 14:50] LABS: Absolute Lymphocytes (CBC) 1.4 K/uL (0.7-4.9); Lymphocytes % 4.9 % (15.3-44.8); MPV 8.4 fL (7.6-11.3); RBC Red Blood Cell Count 5.38 M/uL (3.86-4.86)
[2022-02-28 14:58] LABS: Urine Blood Trace-lysed (Negative); Urine Glucose Negative (Negative); Urine Protein 3+ (Negative); Urine Specific Gravity >=1.030 (1.005-1.030); Urine pH 5.5 (5.0-7.0)
[2022-02-28 15:05] LABS: Albumin 4.5 g/dL (3.4-5.0); Bilirubin Total 0.9 mg/dL (0.2-1.0); Potassium 3.9 mmol/L (3.5-5.1); Protein, Total 8.6 g/dL (6.4-8.2)
[2022-02-28] MEDS ORDERED: PROMETHAZINE INJ 25 MG/ML AMP ONE (15:30)
--- NOTE | 2022-02-28 15:47 | RAD REPORT ---
EXAM DESCRIPTION: CT - Abdomen Pelvis W Contrast - 02/28/2022 3:34 pm CLINICAL HISTORY: Abdominal pain COMPARISON: 2018 TECHNIQUE: Computed axial tomography of the abdomen pelvis was obtained. 100 cc Isovue-300 was admin istered intravenously. Oral contrast was not requested which limits evaluation of bowel. All CT scans are performed using dose optimization technique as appropriate and may include automated exposure control or mA/KV adjustment according to patient size. FINDINGS: Fatty liver The Spleen, pancreas, adrenal and kidneys appear unremarkable. There is no evidence of diverticulitis. No adnexal mass. Fluid within nondilated bowel IMPRESSION: Fluid within nondilated bowel may indicate an enteritis
[2022-02-28 16:16] LABS: Blood Morphology Comment NOT SEEN (NOT SEEN); Platelet Estimate ADEQ
--- NOTE | 2022-02-28 18:01 | ER ---
Nurse's Notes [facility] Name: Huong Benavidez Age: 31 yrs Sex: Female : 1990 Arrival Date: 02/28/2022 Time: 13:56 Bed 19 Private MD: Diagnosis: Enteritis;Nausea with vomiting, unspecified Presentation: 02/28 14:09 Chief complaint: Patient states: "I started vomiting this morning and my stomach hurts ab2 really bad. 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 Pt c/o lower back pain and abdominal pain. Coronavirus screen: Vaccine status: Patient reports receiving the 2nd dose of the covid vaccine. Client denies travel out of the [place] in the last 14 days. At this time, the client does not indicate any symptoms associated with coronavirus-19. Ebola Screen: Patient negative for fever greater than or equal to 101.5 degrees Fahrenheit, and additional compatible Ebola Virus Disease symptoms Patient denies exposure to infectious person. Patient denies travel to an Ebola-affected area in the 21 days before illness onset. No symptoms or risks identified at this time. Initial Sepsis Screen: Does the patient meet any 2 criteria? No. Patient's initial sepsis screen is negative. Does the patient have a suspected source of infection? No. Patient's initial sepsis screen is negative. Risk Assessment: Do you want to hurt yourself or someone else? Patient reports no desire to harm self or others. Onset of symptoms is unknown. 14:09 Method Of Arrival: Ambulatory ab2 14:09 Acuity: STACI 3 ab2 Triage Assessment: 14:12 General: Appears in no apparent distress. uncomfortable, Behavior is calm, cooperative, ab2 appropriate for age. Pain: Complains of pain in back and abdomen. Neuro: Level of Consciousness is awake, alert, obeys commands, Oriented to person, place, time, situation, Appropriate for age Nutritional Services Director are equal bilaterally Moves all extremities. Gait is steady, Speech is normal, Facial symmetry appears normal. Cardiovascular: No deficits noted. Denies chest pain, shortness of breath, Patient's skin is warm and dry. Respiratory: Airway is patent Respiratory effort is even, unlabored, Respiratory pattern is regular, symmetrical. GI: Abdomen is round non-distended, Reports lower abdominal pain, upper abdominal pain, nausea, vomiting. LEGAL EDITOR: 18:59 LMP N/A - control method ll1 Historical: - Allergies: 14:11 No Known Allergies; ab2 - PMHx: 14:11 Ovarian cysts; Diabetes mellitus; ab2 - Immunization history:: Adult Immunizations up to date. - Social history:: Smoking status: Patient denies any tobacco usage or history of. Screenin:16 Abuse screen: Denies threats or abuse. Nutritional screening: No deficits noted. ll1 Tuberculosis screening: No symptoms or risk factors identified. 14:45 Fall Risk IV access (20 points). Total Vega Fall Scale indicates No Risk (0-24 pts). ll1 Assessment: 14:44 Reassessment: No changes from previously documented assessment. Patient and/or family ll1 updated on plan of care and expected duration. Pain level reassessed. Patient is alert, oriented x 3, equal unlabored respirations, skin warm/dry/pink. GI: Abdomen is flat, Bowel sounds present X 4 quads. Reports lower abdominal pain, upper abdominal pain, bloating, nausea, vomiting. 15:31 Reassessment: No changes from previously documented assessment. Patient and/or family ll1 updated on plan of care and expected duration. Pain level reassessed. Patient is alert, oriented x 3, equal unlabored respirations, skin warm/dry/pink. 16:30 Reassessment: No changes from previously documented assessment. Patient and/or family ll1 updated on plan of care and expected duration. Pain level reassessed. Patient is alert, oriented x 3, equal unlabored respirations, skin warm/dry/pink. 17:30 Reassessment: No changes from previously documented assessment. Patient and/or family ll1 updated on plan of care and expected duration. Pain level reassessed. Patient is alert, oriented x 3, equal unlabored respirations, skin warm/dry/pink. 18:30 Reassessment: No changes from previously documented assessment. Patient and/or family ll1 updated on plan of care and expected duration. Pain level reassessed. Patient is alert, oriented x 3, equal unlabored respirations, skin warm/dry/pink. Vital Signs: 14:09 BP 119 / 87; Pulse 130; Resp 17; Temp 97.5(TE); Pulse Ox 98% on R/A; Weight 73.03 kg; ab2 Height 5 ft. 6 in. (167.64 cm); Pain 8/10; 14:31 BP 116 / 80 Supine; Pulse 125; mb7 14:31 BP 112 / 90 Standing; Pulse 150; mb7 14:44 Pulse 121; ll1 15:30 BP 125 / 76; Pulse 113; ll1 18:58 BP 116 / 72; Pulse 101; Resp 16; Pulse Ox 98% ; ll1 14:09 Body Mass Index 25.99 (73.03 kg, 167.64 cm) ab2 ED Course: 13:56 Patient arrived in ED. jj6 14:07 Shamika Khan FNP-C is PHCP. kb 14:07 Chip Rodriguez MD is Attending Physician. kb 14:11 Triage completed. ab2 14:13 Arm band placed on right wrist. ab2 14:15 Antolin Paula, JULIOCESAR is Primary Nurse. ll1 14:15 Inserted saline lock: 22 gauge in left antecubital area, using aseptic technique. Blood ll1 collected. 14:16 Patient placed in an exam room, on a stretcher. ll1 14:16 Patient has correct armband on for positive identification. Bed in low position. Call ll1 light in reach. Side rails up X 1. Pulse ox on. NIBP on. 15:36 CT Abd/Pelvis - IV Contrast Only In Process Unspecified. EDMS 18:59 No provider procedures requiring assistance completed. IV discontinued, intact, ll1 bleeding controlled, No redness/swelling at site. Pressure dressing applied. Administered Medications: 14:35 Drug: NS 0.9% 1000 ml Route: IV; Rate: 1 bolus; Site: left antecubital; ll1 16:57 Follow up: IV Status: Completed infusion; IV Intake: 1000ml ll1 14:35 Drug: Zofran (Ondansetron) 4 mg Route: IVP; Site: left antecubital; ll1 15:30 Follow up: Response: No adverse reaction ll1 15:30 Drug: Phenergan (promethazine) 12.5 mg Route: IVP; Site: left antecubital; ll1 16:57 Follow up: Response: No adverse reaction ll1 16:55 Drug: NS 0.9% 1000 ml Route: IV; Rate: 1000 ml; Site: left antecubital; ll1 18:49 Follow up: Response: No adverse reaction; IV Status: Completed infusion; IV Intake: ll1 1000ml Intake: 16:57 IV: 1000ml; Total: 1000ml. ll1 18:49 IV: 1000ml; Total: 2000ml. ll1 Outcome: 18:00 Discharge ordered by . miley 18:59 Discharged to home ambulatory. ll1 18:59 Condition: stable 18:59 Discharge instructions given to patient, family, Instructed on discharge instructions, follow up and referral plans. no drinking with medication, no driving heavy equipment, medication usage, Demonstrated understanding of instructions, follow-up care, medications, Prescriptions given X 2. 19:00 Patient left the ED. 1 Signatures: Dispatcher [employer] EDMS Shamika Khan, BEEF LUGGER-C CHERRI-Antolin Don RN RN ll1 Yue Knight6 Karla Bailey mb7 Antoni Krause2
--- NOTE | 2022-02-28 18:02 | EDPHYS ---
Physician Documentation [facility] Name: Huong Benavidez Age: 31 yrs Sex: Female : 1990 Arrival Date: 02/28/2022 Time: 13:56 Bed 19 Private MD: LG Physician Chip Rodriguez HPI: 02/28 16:05 This 31 yrs old Female presents to ER via Ambulatory with complaints of kb Nausea/Vomiting, Abdominal Pain. 16:05 The patient presents to the emergency department with nausea, vomiting, abdominal pain. kb Onset: The symptoms/episode began/occurred this morning. Possible causes: unknown. The symptoms are aggravated by nothing. The symptoms are alleviated by nothing. Associated signs and symptoms: Pertinent positives: abdominal pain, nausea, vomiting, Pertinent negatives: diarrhea, fever. Severity of symptoms: At their worst the symptoms were moderate in the emergency department the symptoms are unchanged. The patient has not experienced similar symptoms in the past. The patient has not recently seen a physician. Pt reports abdominal pain, nausea and vomiting that started this morning. States she has developed dizziness now so she came to get checked out. 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 - Social history:: Smoking status: Patient denies any tobacco usage or history of. ROS: 16:04 Constitutional: Negative for fever, chills, and weight loss. kb 16:04 Abdomen/GI: Positive for abdominal pain, nausea and vomiting, Negative for diarrhea, constipation. 16:04 All other systems are negative. 16:06 Neuro: Positive for dizziness. kb Exam: 16:04 Constitutional: This is a well developed, well nourished patient who is awake, alert, kb and in no acute distress. Head/Face: Normocephalic, atraumatic. ENT: Moist Mucous membranes Cardiovascular: Regular rate and rhythm with a normal S1 and S2. No gallops, murmurs, or rubs. No pulse deficits. Respiratory: Respirations even and unlabored. No increased work of breathing. Talking in full sentences Abdomen/GI: Soft, non-tender. No distention Skin: Warm, dry with normal turgor. Normal color. MS/ Extremity: Pulses equal, no cyanosis. Neurovascular intact. Full, normal range of motion. Neuro: Awake and alert, GCS 15, oriented to person, place, time, and situation. Moves all extremities. Normal gait. Psych: Awake, alert, with orientation to person, place and time. Behavior, mood, and affect are within normal limits. Vital Signs: 14:09 BP 119 / 87; Pulse 130; Resp 17; Temp 97.5(TE); Pulse Ox 98% on R/A; Weight 73.03 kg; ab2 Height 5 ft. 6 in. (167.64 cm); Pain 8/10; 14:31 BP 116 / 80 Supine; Pulse 125; mb7 14:31 BP 112 / 90 Standing; Pulse 150; mb7 14:44 Pulse 121; ll1 15:30 BP 125 / 76; Pulse 113; ll1 18:58 BP 116 / 72; Pulse 101; Resp 16; Pulse Ox 98% ; ll1 14:09 Body Mass Index 25.99 (73.03 kg, 167.64 cm) ab2 MDM: 14:15 Patient medically screened. kb 16:03 Data reviewed: vital signs, nurses notes. Data interpreted: Pulse oximetry: on room air kb is 98 %. Interpretation: normal. Counseling: I had a detailed discussion with the patient and/or guardian regarding: the historical points, exam findings, and any diagnostic results supporting the discharge/admit diagnosis, lab results, radiology results, the need for outpatient follow up, a family practitioner, to return to the emergency department if symptoms worsen or persist or if there are any questions or concerns that arise at home. 18:04 ED course: Nontoxic in appearance. Tolerating po intake. kb 02/28 14:17 Order name: CBC with Diff; Complete Time: 16:18 kb 02/28 14:17 Order name: CMP; Complete Time: 15:09 kb 02/28 14:17 Order name: Lipase; Complete Time: 15:09 kb 02/28 14:55 Order name: Manual Differential; Complete Time: 16:18 EDMS 02/28 14:58 Order name: Urine Dipstick-Ancillary; Complete Time: 15:01 EDMS 02/28 15:05 Order name: Urine --Ancillary (enter results); Complete Time: 15:49 eb 02/28 14:17 Order name: IV Saline Lock; Complete Time: 14:23 kb 02/28 14:17 Order name: Labs collected and sent; Complete Time: 14:23 kb 02/28 14:17 Order name: Urine Dipstick-Ancillary (obtain specimen); Complete Time: 14:58 kb 02/28 14:52 Order name: CT Abd/Pelvis - IV Contrast Only; Complete Time: 15:49 kb 02/28 14:17 Order name: Urine Test (obtain specimen); Complete Time: 14:58 kb 02/28 14:17 Order name: Orthostatics; Complete Time: 14:43 kb 02/28 16:18 Order name: PO challenge; Complete Time: 16:23 kb Administered Medications: 14:35 Drug: NS 0.9% 1000 ml Route: IV; Rate: 1 bolus; Site: left antecubital; ll1 16:57 Follow up: IV Status: Completed infusion; IV Intake: 1000ml ll1 14:35 Drug: Zofran (Ondansetron) 4 mg Route: IVP; Site: left antecubital; ll1 15:30 Follow up: Response: No adverse reaction ll1 15:30 Drug: Phenergan (promethazine) 12.5 mg Route: IVP; Site: left antecubital; ll1 16:57 Follow up: Response: No adverse reaction ll1 16:55 Drug: NS 0.9% 1000 ml Route: IV; Rate: 1000 ml; Site: left antecubital; ll1 18:49 Follow up: Response: No adverse reaction; IV Status: Completed infusion; IV Intake: ll1 1000ml Disposition Summary: 02/28/22 18:00 Discharge Ordered Location: Home kb Condition: Stable kb Diagnosis - Enteritis kb - Nausea with vomiting, unspecified kb Followup: kb - With: Emergency Department - When: As needed - Reason: Worsening of condition Followup: kb - With: Private Physician - When: 2 - 3 days - Reason: Recheck today's complaints, Continuance of care, Re-evaluation by your physician Discharge Instructions: - Discharge Summary Sheet kb - Viral Gastroenteritis, Adult, [id number] kb - Nausea and Vomiting, Adult, [id number] kb Forms: - Medication Reconciliation Form kb - Thank You Letter kb - Antibiotic Education kb - Prescription Opioid Use kb Prescriptions: - promethazine 25 mg Oral Tablet - take 1 tablet by ORAL route every 6 hours As needed; 20 tablet; Refills: 0, kb Product Selection Permitted - dicyclomine 20 mg Oral Tablet - take 1 tablet by ORAL route 4 times per day As needed; 20 tablet; Refills: 0, kb Product Selection Permitted Addendum: 03/05/2022 18:32 Co-signature as Attending Physician, Chip Rodriguez MD I agree with the assessment and c acosta plan of care. Signatures: Dispatcher [employer] Shamika Garcia, CHERRI-C GLASS SCIENCE ENGINEER-Chip Wang MD MD cha Lewis, Lynsay, RN RN ll1 Antoni Krause
[2022-02-28 20:35] VITALS: TEMP 97.5; O2SAT 98
[2022-02-28 20:40] VITALS: BP 116/72
== END 2022-02-28 19:00 | disposition home or self-care (01) ==
LOC: ER 13:54
DX: K52.9 Noninfective gastroenteritis and colitis, unspecified (principal); R11.2 Nausea with vomiting, unspecified; E11.9 Type 2 diabetes mellitus without complications
CPT/HCPCS: 36415; 74177; 80053; 81003; 81025; 83690; 85025; 96361; 96374; 96375; 99284; J2405; J2550; J7030; Q9967